=== PATIENT | male | born 1975 | race Caucasian/White ===

== ENCOUNTER 2022-06-16 06:22 | Emergency (ER) | payer BC ==
--- OUTSIDE RECORDS SUMMARY | 2022-06-16 06:26 | XMS REPORT | Continuity of Care Document ---
:1975 Author Organization [facility] t Address [address] [place] [place] [address] Care Team Providers Name Role Phone Kena DE LA ROSA MD, Malvin Reyes Primary Care Physician [phone] Andrew Owen MD Attending Clinician TERRY_S Attending Clinician Unavailable Karina Swenson Attending Clinician [phone] Enrique Sweeney Attending Clinician [phone] LIZZETH Attending Clinician Unavailable Quiana Romo Attending Clinician [phone] CHAYITO VAN Attending Clinician Unavailable WATERS_S Admitting Clinician Unavailable WHITNEY_Rk Admitting Clinician Unavailable Payers Payer Name Policy Type Policy Number Effective Date Expiration Date S sar[place] [id number] 2020 00:00:00 [place] Problems Condition Condition Condition Status Onset Resolution Last Treating Co mments Source Name Details Category Date Date Treatment Clinician Date Biceps Biceps Disease Active [facility] tendinitis tendinitis [address] on left on left 00:00: Hospita 00 l Allergies, Adverse Reactions, Alerts Allergy Allergy Status Severity Reaction(s) Onset Inactive Treating Comm ents Source Name Type Date Date Clinician Nadya Osuna Active GI 2018-10 [facility] ty to Intolerance 1-05 st adverse 00:00: Hospita reaction 00 l s to drug Family History Family Member Diagnosis Comments Start Date Stop Date Source Natural father Cancer [facility] Natural mother No Known Problems Met [facility] Social History Social Habit Start Date Stop Date Quantity Comments Source History of tobacco Cigarette Smoker [facility] use [facility] Alcohol intake 2022-04-28 2022-04-28 Current drinker [facility] 00:00:00 00:00:00 of alcohol Hospital (finding) Cigarettes smoked 2021-01-13 2021-01-[address] current (pack per 00:00:00 00:00:00 Hospita l day) - Reported Cigarette 2021-01-13 2021-01-13 [facility] pack-years 00:00:00 00:00:00 Hospital Tobacco use and 2021-01-13 2021-01-13 Smokeless tobacco Me [facility] exposure 00:00:00 00:00:00 non-user Hospital Alcohol Comment 2021-01-13 2021-01-13 12 pk a week [facility] 00[facility]00 [facility]00 Hospital Sex Assigned At [birth year] [facility] 00:00:00 00:00:00 Hospital Smoking Status Start Date Stop Date Source Ex-smoker 2021-01-13 00:00:00 2021-01-13 00:00:00 [facility] Medications Ordered Filled Start Stop Current Ordering Indication Dosage Frequency Signature Comments Components Source Medication Medication Date Date Medication? Clinician (SIG) Name Name celecoxib Yes [id number] TAKE 1 M [facility] (CeleBREX) 8-[address] 200 MG 00:00: MOUTH Hospita capsule 00 DAILY FOR l 30 DAYS. celecoxib 2021- No [id number] 200mg QD Take 1 [facility] (CeleBREX) 7-19 08-[address] 200 MG 00:00: 00:00 (200 mg Hospita capsule 00 :00 total) by l mouth daily for 30 days. Vital Signs Vital Name Observation Time Observation Value Comments Source Body height 2022-04-28 19:41:00 193 cm [facility] Body weight 2022-04-28 19:41:00 111.131 kg [facility] BMI 2022-04-28 19:41:00 29.82 kg/m2 [facility] Procedures Procedure Date / Time Performed Performing Clinician Eleazar e XR ELBOW 3+ VW LEFT 2022-04-28 19:54:30 Andrew Gracia [facility] Plan of Care Planned Activity Planned Date Details Comments Source Future Scheduled 2022-06-12 HEPATITIS B VACCINES Met [facility] Test 22:20:19 (1 of 3 - 3-dose series) [code = HEPATITIS B VACCINES (1 of 3 - 3-dose series)] Future Scheduled 2022-06-12 COVID-19 VACCINE (#1) [facility] Test 22:20:19 [code = COVID-19 VACCINE (#1)] Future Scheduled 2022-06-12 Hepatitis C screening [facility] Test 22:20:19 (procedure) [code = 068283351] Future Scheduled 2022-06-12 INFLUENZA VACCINE Method [facility] Test 22:20:19 [code = INFLUENZA VACCINE] Future Scheduled 2022-06-12 COLONOSCOPY SCREENING [facility] Test 22:20:19 [code = COLONOSCOPY SCREENING] Encounters Start End Encounter Admission Attending Care Care Encounter Source Date/Time Date/Time Type Type Clinicians Facility Department ID 2022-05-25 2022-05-25 Refill Gracia, [id number] [facility] 00:00:00 00:00:[address] Andrew [id number] 3.430.2.7 Hospit a .3.839502 l .8 2022-05-06 2022-05-06 Outpatient [facility] [id number] [place] 00:00:00 00:00:00 727 [facility] 2022-05-06 2022-05-06 Outpatient Karina Swenson [facility] be2 [id number] 00:00:00 00:00:00 [id number] 2022-04-28 2022-04-28 [address]1 [id number] [facility] 15:00:00 15:19:38 Visit Andrew Higgins [id number] 3.430.2.7 Hospit a .3.611863 l .8 2022-04-28 2022-04-28 Outpatient [facility] [id number] [place] 00:00:00 00:00:00 [address] [facility] 2022-04-28 2022-04-28 Outpatient [facility] [id number] [place] 00:00:00 00:00:[address] ANDREW [address] 2022-04-27 2022-04-27 Travel 1.2.840.1 [id number] [facility] 00:00:00 00:00:[address] 3.430.2.7 0.2.7.3.698 Ho spita .3.154791 084.8 l .8 2021-12-22 2021-12-22 Outpatient [facility] [id number] [place] 06:52:00 06:52:00 314 [facility] 2021-12-01 2021-12-01 Outpatient [facility] [id number] [place] 02:23:00 02:23:00 221 [facility] 2021-11-27 2021-11-27 Outpatient [facility] [id number] [place] 02:43:00 02:43:00 217 [facility] 2021-11-10 2021-11-10 Outpatient [facility] [id number] [place] 02:45:00 02:45:00 131 [facility] 2021-11-02 2021-11-02 Outpatient [facility] [id number] [place] 12:57:00 12:57:00 123 [facility] 2021-10-13 2021-10-13 Outpatient [facility] [id number] [place] 05:36:00 05:36:00 103 [facility] 2021-10-13 2021-10-13 Outpatient Patel [facility] [id number] 00:00:00 00:00:00 Enrique [id number] 2021-07-26 2021-07-26 Outpatient WHITNEY [facility] [address] [place] 03:50:00 03:50:00 _L 016 [facility] 2021-06-21 2021-06-21 Outpatient [facility] [address] [place] 03:04:00 03:04:00 _L 911 [facility] 2021-05-17 2021-05-17 Outpatient [facility] [address] [place] 03:25:00 03:25:00 _L 807 [facility] 2021-04-12 2021-04-12 Outpatient [facility] 72 [place] 02:15:00 02:15:00 _L 703 [facility] 2021-03-13 2021-03-13 Outpatient [facility] 72 [place] 06:12:00 06:12:00 _L 603 [facility] 2021-03-13 2021-03-13 Outpatient [facility] 23f [id number] 00:00:00 00:00:00 , Quiana [id number] Mayda [id number] 2021-01-13 2021-01-13 Outpatient CHAYITO VAN [facility] [id number] [place] 00:00:00 00:00:[address] 2021-01-13 2021-01-13 Outpatient CHAYITO VAN [facility] [id number] [place] 00:00:00 00:00:[address] 2020-10-08 2020-10-08 Outpatient [facility] 724 09:13:00 09:13:00 _L 229 [facility] Results This patient has no known results.
--- NOTE | 2022-06-16 07:12 | RAD REPORT ---
EXAM DESCRIPTION: RAD - Chest Single View - 06/16/2022 6:59 am CLINICAL HISTORY: CHEST PAIN COMPARISON: None TECHNIQUE: AP portable chest image was obtained 06/16/2022 6:59 am . FINDINGS: Lung volumes are low. No focal mass or consolidation. Interstitial pattern is prominent mo st likely baseline accentuation due to low lung volume. Minimal interstitial edema or infiltrate coul d be masked. Trachea is midline. No katlyn mass or lymphadenopathy. Heart and vasculature are normal. No measurable pleural effusion and no pneumothorax. No acute bony abnormality seen. No acute aortic findings suspec kendra. IMPRESSION: No acute cardiopulmonary process. Low lung volumes accentuating baseline interstitial pattern. This could potentially mask minimal yoni a or infiltrate.
[2022-06-16 07:26] LABS: Absolute Lymphocytes (CBC) 1.2 K/uL (0.7-4.9); Hematocrit 46.6 % (39.6-49.0); Lymphocytes % 22.6 % (15.3-44.8); MCV 94.3 fL (80-100); MPV 7.5 fL (7.6-11.3); RBC Red Blood Cell Count 4.94 M/uL (4.33-5.43)
[2022-06-16] MEDS ORDERED: MAGNES/ALUMIN/SIMET 30ML UCUP ONE (07:40)
[2022-06-16] MEDS ORDERED: MORPHINE 2 MG/ML SYR ONE (07:40)
[2022-06-16] MEDS ORDERED: ASPIRIN 81 MG CHEWABLE TABLET ONE (07:40)
[2022-06-16] MEDS ORDERED: ONDANSETRON 4 MG/2 ML VIAL ONE (07:41)
[2022-06-16] MEDS ORDERED: LIDOCAINE VISCOUS 2% SOLN 15 ML UDC ONE (07:41)
[2022-06-16 08:30] LABS: Potassium 3.9 mmol/L (3.5-5.1); Troponin High Sensitivity 3.5 pg/mL (<58.9)
[2022-06-16 08:32] LABS: Albumin 4.1 g/dL (3.4-5.0); Bilirubin Direct 0.1 mg/dL (0-0.2)
[2022-06-16 08:35] LABS: Bilirubin Total 0.3 mg/dL (0.2-1.0); Protein, Total 7.9 g/dL (6.4-8.2)
--- NOTE | 2022-06-16 08:58 | RAD REPORT ---
EXAM DESCRIPTION: CT - Angio Aorta For Dissection - 06/16/2022 8:47 am CLINICAL HISTORY: CP, recurrent COMPARISON: None. TECHNIQUE: Dynamically enhanced 3 mm thick images of the chest, abdomen, and pelvis were obtained du ring administration of approximately 150mL Isovue 370 IV contrast. Sagittal and coronal reconstructio n images were generated using MIP and reviewed. Exam utilizes a protocol to evaluate entire course of the aorta. All CT scans are performed using dose optimization technique as appropriate and may include automated exposure control or mA/KV adjustment according to patient size. FINDINGS: Aorta is normal in diameter with no dissection or other acute aortic findings. Reconstruct ion images show no significant findings. Pulmonary arteries are normal as well. No cardiomegaly, myocardial wall thickening, pericardial thick ening or pericardial effusion. No mass or infiltrate in the lung parenchyma. No pleural thickening, pleural effusion or pneumothorax . No endobronchial lesion or abnormal bronchial wall thickening. No abnormal mediastinal or hilar mass or lymphadenopathy seen. No chest wall mass or abnormal axillar y lymphadenopathy. Celiac, SMA and renal arteries show no suspicious findings. Solid abdominal viscera and bowel show no significant findings. Appendix normal. No suspicion for gallbladder or biliary tree abnormality. No mass or abnormal lymphadenopathy. No free air, free fluid or inflammatory stranding. No urinary blad dionicio abnormality. No acute bone finding. IMPRESSION: Negative CT scan of the aorta. No other significant findings on chest, abdomen and pelvis examination.
--- NOTE | 2022-06-16 09:14 | EDPHYS ---
Physician Documentation [facility] Name: Milind Horvath Age: 47 yrs Sex: Male : 1975 Arrival Date: 06/16/2022 Time: 06:25 Bed 20 Private MD: ED Physician Scot Acuna HPI: 06/16 07:24 This 47 yrs old Male presents to ER via Ambulatory with complaints of Chest Pain, Back rn Pain. 07:24 The patient or guardian reports chest pain that is located primarily in the substernal rn area, epigastric area. Onset: 2 day(s) ago. The pain radiates to back. Associated signs and symptoms: Pertinent negatives: diaphoresis, lower extremity swelling, shortness of breath, syncope. The chest pain is described as aching. Duration: The patient or guardian reports multiple episodes, that are intermittent. Modifying factors: The symptoms are alleviated by nothing. the symptoms are aggravated by nothing. Severity of pain: At its worst the pain was mild in the emergency department the pain has improved. The patient has not experienced similar symptoms in the past. Reports chest pain, epigastric and substernal, radiates to back, began 2 days ago, intermittent, hurt more after hitting balls with daughter yesterday. No fever/cough/sob. No famhx of cardiac problems at or near his age. NO vomiting. . Historical: - Allergies: 06:33 No Known Allergies; tw5 - Home Meds: 06:33 None [Active]; tw5 - PMHx: 06:33 None; tw5 - PSHx: 06:33 None; tw5 - Immunization history:: Flu vaccine is not up to date. - Social history:: Smoking status: Reported history of juuling and/or vaping. - Family history:: not pertinent. - Hospitalizations: : No recent hospitalization is reported. ROS: 07:24 Constitutional: Negative for fever, chills, and weight loss, Eyes: Negative for injury, rn pain, redness, and discharge, Neck: Negative for injury, pain, and swelling, Cardiovascular: Negative for palpitations, and edema, Respiratory: Negative for shortness of breath, cough, wheezing, and pleuritic chest pain, Abdomen/GI: Negative for vomiting, diarrhea, and constipation, Back: Negative for injury and pain, MS/Extremity: Negative for injury and deformity, Skin: Negative for injury, rash, and discoloration, Neuro: Negative for headache, weakness, numbness, tingling, and seizure. Exam: 07:24 Constitutional: This is a well developed, well nourished patient who is awake, alert, rn and in no acute distress. Head/Face: Normocephalic, atraumatic. Eyes: Conjunctiva and sclera are non-icteric and not injected. Cornea within normal limits. Periorbital areas with no swelling, redness, or edema. Cardiovascular: Regular rate and rhythm with a normal S1 and S2. No gallops, murmurs, or rubs. No pulse deficits. Respiratory: Speaking full sentences, unlabored. No increased work of breathing, no retractions or nasal flaring. Abdomen/GI: Soft, mild epigastric tenderness, no rebound Skin: Warm, dry MS/ Extremity: Pulses equal, no cyanosis. Neuro: Awake and alert, GCS 15 09:12 ECG was reviewed by the Attending Physician. rn Vital Signs: 06:30 BP 119 / 99; Pulse 63; Resp 18; Temp 97.7; Pulse Ox 98% on R/A; Weight 113.4 kg; Height tw5 6 ft. 4 in. (193.04 cm); Pain 2/10; 07:47 BP 128 / 74; Pulse 58; Resp 16; Pulse Ox 99% ; vg1 09:00 BP 117 / 84; Pulse 60; Resp 16; Pulse Ox 99% on R/A; tp1 06:30 Body Mass Index 30.43 (113.40 kg, 193.04 cm) tw5 MDM: 07:00 Patient medically screened. rn 09:12 Differential diagnosis: acute myocardial infarction, acute pericarditis, anxiety, rn coronary artery disease chest wall pain, cholecystitis, Cholelithiasis costochondritis, esophagitis, gastritis, gastroesophageal reflux disease (GERD), myocarditis, pancreatitis, peptic ulcer disease, pleurisy, pneumonia, pneumothorax, pulmonary embolus, stable angina, thoracic aortic disection. HEART Score: History: Slightly Suspicious (0), ECG: Normal (0), Age: < or = 45 years (0), Risk Factors: No Risk Factors Known (0), Troponin: < or = 1 x Normal Limit (0), Total Score = 0. 09:12 Data reviewed: vital signs, nurses notes, lab test result(s), EKG, radiologic studies, rn CT scan, plain films, and as a result, I will discharge patient. Counseling: I had a detailed discussion with the patient and/or guardian regarding: the historical points, exam findings, and any diagnostic results supporting the discharge/admit diagnosis, lab results, radiology results, the need for outpatient follow up, to return to the emergency department if symptoms worsen or persist or if there are any questions or concerns that arise at home. Special discussion: Based on the patient's history, exam, and Dx evaluation, there is no indication for emergent intervention or inpatient Tx. It is understood by the patient/guardian that if the Sx's persist or worsen they need to return immediately for re-evaluation. I discussed with the patient/guardian in detail that at this point there is no indication for admission to the hospital. It is understood, however, that if the symptoms persist or worsen the patient needs to return immediately for re-evaluation. Based on the history and exam findings, there is no indication for further emergent testing or inpatient evaluation. I discussed with the patient/guardian the need to see the director compensation for further evaluation of the symptoms. 09:12 Response to treatment: the patient's symptoms have mildly improved after treatment. rn 06/16 06:42 Order name: Basic Metabolic Panel; Complete Time: 08:35 [facility] 06/16 06:42 Order name: CBC with Diff; Complete Time: 08:05 [facility] 06/16 06:42 Order name: Troponin HS; Complete Time: 08:35 [facility] 06/16 06:42 Order name: XRAY Chest (1 view); Complete Time: 07:23 [facility] 06/16 06:56 Order name: Lipase; Complete Time: 08:35 [facility] 06/16 07:23 Order name: LFT's; Complete Time: 08:52 rn 06/16 06:42 Order name: EKG; Complete Time: 06:43 [facility] 06/16 06:42 Order name: Cardiac monitoring; Complete Time: 06:59 [facility] 06/16 06:56 Order name: CT Aorta for Dissection; Complete Time: 09:06 [facility] 06/16 06:42 Order name: EKG - Nurse/Tech; Complete Time: 06:42 [facility] 06/16 06:42 Order name: IV Saline Lock; Complete Time: 06:57 3 06/16 06:42 Order name: Labs collected and sent; Complete Time: 06:57 lg3 06/16 06:42 Order name: O2 Per Protocol; Complete Time: 06:42 lg3 06/16 06:42 Order name: O2 Sat Monitoring; Complete Time: 06:42 lg3 EC:12 Rate is 54 beats/min. Rhythm is regular. QRS [place] is Normal. ME interval is normal. QRS rn interval is normal. QT interval is normal. No Q waves. T waves are Normal. No ST changes noted. Clinical impression: Normal ECG and Sinus bradycardia. Interpreted by me. Reviewed by me. Administered Medications: 07:38 Drug: Zofran (Ondansetron) 4 mg Route: IVP; Site: right antecubital; vg1 09:18 Follow up: Response: No adverse reaction tp1 07:40 Drug: morphine 2 mg Route: IVP; Infused Over: 4 mins; Site: right antecubital; vg1 09:18 Follow up: Response: Pain is decreased tp1 07:43 Drug: Aspirin Chewable Tablet 162 mg Route: PO; vg1 09:19 Follow up: Response: No adverse reaction tp1 07:44 Drug: GI Cocktail without - (Maalox Suspension 30 ml, Lidocaine Liquid 2 % 15 vg1 ml) Route: PO; 09:18 Follow up: Response: Pain is decreased tp1 Disposition Summary: 06/16/22 09:14 Discharge Ordered Location: Home rn Problem: new rn Symptoms: have improved rn Condition: Stable rn Diagnosis - Chest pain, unspecified rn Followup: rn - With: Kentrell Simpson MD - When: As needed - Reason: Recheck today's complaints, Re-evaluation by your physician Discharge Instructions: - Discharge Summary Sheet rn - Nonspecific Chest Pain, Adult rn - Pain Without a Known Cause rn Forms: - Medication Reconciliation Form rn - Thank You Letter rn - Antibiotic stitch burnisher - Prescription Opioid Use rn Signatures: Dispatcher [employer] Bala Romo MD MD cha Nieto, Roman, MD MD rn Gibson, Lacie, RN MORENITA cao3 Meeta Ca, RN RN beata1 Aida Veronica tw5 Aida Corea RN tp1
--- NOTE | 2022-06-16 09:14 | ER ---
Nurse's Notes [facility] Name: Milind Horvath Age: 47 yrs Sex: Male : 1975 Arrival Date: 06/16/2022 Time: 06:25 Bed 20 Private MD: Diagnosis: Chest pain, unspecified Presentation: 06/16 06:30 Chief complaint: Patient states: "I woke up Wednesday morning with my chest and back tw5 hurting. It went away. Then that night my said I was rolling around hollering in my sleep. This morning I was driving into work and my chest was hurting, not really by back, but my said I was hollering again last night.". Coronavirus screen: Vaccine status: Patient reports receiving the 2nd dose of the covid vaccine. Unknown which brand. Ebola Screen: Patient negative for fever greater than or equal to 101.5 degrees Fahrenheit, and additional compatible Ebola Virus Disease symptoms Patient denies exposure to infectious person. Patient denies travel to an Ebola-affected area in the 21 days before illness onset. Initial Sepsis Screen: Does the patient meet any 2 criteria? No. Patient's initial sepsis screen is negative. Does the patient have a suspected source of infection? No. Patient's initial sepsis screen is negative. Risk Assessment: Do you want to hurt yourself or someone else? Patient reports no desire to harm self or others. Onset of symptoms is unknown. 06:30 Method Of Arrival: Ambulatory tw5 06:30 Acuity: STEFANIE 3 tw5 Triage Assessment: 06:33 General: Appears in no apparent distress. Behavior is calm, cooperative, appropriate tw5 for age. Pain: Pain currently is 2 out of 10 on a pain scale. at worst was 8 out of 10 on a pain scale. Cardiovascular: Pulses are all present. Historical: - Allergies: 06:33 No Known Allergies; tw5 - Home Meds: 06:33 None [Active]; tw5 - PMHx: 06:33 None; tw5 - PSHx: 06:33 None; tw5 - Immunization history:: Flu vaccine is not up to date. - Social history:: Smoking status: Reported history of juuling and/or vaping. - Family history:: not pertinent. - Hospitalizations: : No recent hospitalization is reported. Screenin:38 Abuse screen: Denies threats or abuse. Denies injuries from another. Nutritional lg3 screening: No deficits noted. Tuberculosis screening: No symptoms or risk factors identified. Fall Risk None identified. Assessment: 06:38 General: Appears in no apparent distress. comfortable, Behavior is calm, cooperative. lg3 Pain: Complains of pain in back and chest Pain does not radiate. Pain currently is 2 out of 10 on a pain scale. Quality of pain is described as crampy, pressure, squeezing, Pain began 2-3 days ago. Is intermittent, episodic. Neuro: No deficits noted. Level of Consciousness is awake, alert, obeys commands, Oriented to person, place, time, situation. Cardiovascular: No deficits noted. Capillary refill < 3 seconds Clubbing of nail beds is absent JVD is absent Patient's skin is warm and dry. Cardiovascular: Chest pain. Respiratory: No deficits noted. Airway is patent Trachea midline Respiratory effort is even, unlabored, Respiratory pattern is regular, symmetrical, Breath sounds are clear bilaterally. GI: No deficits noted. No signs and/or symptoms were reported involving the gastrointestinal system. Abdomen is round non-distended, Bowel sounds present X 4 quads. Abd is soft and non tender X 4 quads. : No deficits noted. No signs and/or symptoms were reported regarding the genitourinary system. EENT: No deficits noted. No signs and/or symptoms were reported regarding the EENT system. Derm: No deficits noted. No signs and/or symptoms reported regarding the dermatologic system. Skin is intact, is healthy with good turgor, Skin is dry, Skin is normal, Skin temperature is warm. Musculoskeletal: No deficits noted. No signs and/or symptoms reported regarding the musculoskeletal system. Circulation, motion, and sensation intact. Range of motion: intact in all extremities. 07:30 General: Appears in no apparent distress. comfortable, Behavior is calm, cooperative. vg1 Pain: Complains of pain in xiphoid area and mid-sternal area and epigastric area Pain radiates to JEAN shoulders Pain currently is 8 out of 10 on a pain scale. Quality of pain is described as dull, Pain began 2-3 days ago. Is intermittent. Neuro: Level of Consciousness is awake, alert, obeys commands, Oriented to person, place, time, situation. Cardiovascular: Patient's skin is warm and dry. Respiratory: Airway is patent Respiratory effort is even, unlabored. GI: No signs and/or symptoms were reported involving the gastrointestinal system. : No signs and/or symptoms were reported regarding the genitourinary system. 08:30 Reassessment: Patient appears in no apparent distress at this time. No changes from tp1 previously documented assessment. Patient is alert, oriented x 3, equal unlabored respirations, skin warm/dry/pink. 08:40 Reassessment: escorted to CT via wheelchair by [facility] Study Course. tp1 08:51 Reassessment: returned from CT via wheelchair. tp1 Vital Signs: 06:30 BP 119 / 99; Pulse 63; Resp 18; Temp 97.7; Pulse Ox 98% on R/A; Weight 113.4 kg; Height tw5 6 ft. 4 in. (193.04 cm); Pain 2/10; 07:47 BP 128 / 74; Pulse 58; Resp 16; Pulse Ox 99% ; vg1 09:00 BP 117 / 84; Pulse 60; Resp 16; Pulse Ox 99% on R/A; tp1 06:30 Body Mass Index 30.43 (113.40 kg, 193.04 cm) tw5 ED Course: 06:25 Patient arrived in ED. ja2 06:33 Triage completed. tw5 06:33 Arm band placed on. tw5 06:38 Patient has correct armband on for positive identification. Placed in gown. Bed in low lg3 position. Call light in reach. Side rails up X 1. Client placed on continuous cardiac and pulse oximetry monitoring. NIBP monitoring applied. threat monitoring analyst on. Door closed. Noise minimized. Warm blanket given. 06:38 Patient maintains SpO2 saturation greater than 95% on room air. lg3 06:41 Maggie Lawson, RN is Primary Nurse. lg3 06:45 EKG done, by ED staff, reviewed by Bala Calvert MD. tw5 06:57 Basic Metabolic Panel Sent. lg3 06:57 CBC with Diff Sent. lg3 06:57 Troponin HS Sent. lg3 06:57 Inserted saline lock: 20 gauge in right antecubital area, using aseptic technique. lg3 Blood collected. 07:00 Scot Acuna MD is Attending Physician. rn 07:08 XRAY Chest (1 view) In Process Unspecified. EDMS 08:49 CT Aorta for Dissection In Process Unspecified. EDMS 09:08 Primary Nurse role handed off by Maggie Lawson, MORENITA em1 09:13 Kentrell Simpson MD is Referral Physician. rn 09:17 No provider procedures requiring assistance completed. tp1 09:56 Aida Corea, MORENITA is Primary Nurse. tp1 09:56 IV discontinued, intact, bleeding controlled, No redness/swelling at site. Pressure tp1 dressing applied. Administered Medications: 07:38 Drug: Zofran (Ondansetron) 4 mg Route: IVP; Site: right antecubital; vg1 09:18 Follow up: Response: No adverse reaction tp1 07:40 Drug: morphine 2 mg Route: IVP; Infused Over: 4 mins; Site: right antecubital; vg1 09:18 Follow up: Response: Pain is decreased tp1 07:43 Drug: Aspirin Chewable Tablet 162 mg Route: PO; vg1 09:19 Follow up: Response: No adverse reaction tp1 07:44 Drug: GI Cocktail without - (Maalox Suspension 30 ml, Lidocaine Liquid 2 % 15 vg1 ml) Route: PO; 09:18 Follow up: Response: Pain is decreased tp1 Medication: 09:17 VIS not applicable for this client. tp1 Outcome: 09:14 Discharge ordered by . rn 09:56 Discharged to home ambulatory. tp1 09:56 Condition: good 09:56 Discharge instructions given to patient, Instructed on discharge instructions, follow up and referral plans. Demonstrated understanding of instructions, follow-up care. 09:57 Patient left the ED. tp1 Signatures: Dispatcher [employer] EDAR Scot Acuna MD MD rn Martinez, Eric em1 Maggie Lawson, RN RN lg3 Meeta Ca RN RN vg1 Jennie Tamayo Tiffany tw5 Aida Corea RN RN tp1
[2022-06-16 10:47] VITALS: TEMP 97.7
[2022-06-16 10:56] VITALS: O2SAT 99
[2022-06-16 11:04] VITALS: BP 117/84
--- NOTE | 2022-06-17 12:51 | EKG ---
Test Date: 2022-06-16 Test Time: 06:38:11 Rod Greaser: MEASUREMENT RESULTS: Intervals: Rate: 54 MI: 144 QRSD: 82 QT: 430 QTc: 407 [place]: P: 6 MI: 144 QRS: 52 T: 32 INTERPRETIVE STATEMENTS: Sinus bradycardia Otherwise normal ECG Compared to ECG 09/15/2005 05:51:00 Sinus rhythm no longer present Electronically Signed On 06-17-22 12:49:48 CDT by Marco Ríos
== END 2022-06-16 09:57 | disposition home or self-care (01) ==
LOC: ER 06:22
DX: R07.9 Chest pain, unspecified (principal)
CPT/HCPCS: 93005; 85025; 80048; 36415; 80076; 84484; 83690; 71275; 74175; 71045; 96375; 96374; 99285; Q9967; J2270; J2405